=== PATIENT | female | born 1980 | race Hispanic/Latino ===

== ENCOUNTER 2017-04-09 10:55 | Emergency (ER) | payer SELFPAY ==
[2017-04-09] MEDS ORDERED: DEXAMETHASONE SOD PHOSPHATE 10MG/ML 1ML VIAL ONE (11:42)
[2017-04-09] MEDS ORDERED: CEFTRIAXONE SODIUM 1 GM ONE (11:43)
[2017-04-09] MEDS ORDERED: BENZONATATE 100 MG CAPSULE PO ONE (11:43)
[2017-04-09] MEDS ORDERED: LIDOCAINE HCL-MPF 1% 2ML VIAL ONE (11:43)
[2017-04-09] MEDS ORDERED: IPRATROPIUM/ALBUTEROL SULFATE 3 ML SOLUTION IH ONE (11:56)
== END 2017-04-09 13:31 | disposition home or self-care (01) ==
LOC: EDH 10:55
DX: J01.10 Acute frontal sinusitis, unspecified (principal); I10 Essential (primary) hypertension; Z72.0 Tobacco use
CPT/HCPCS: 94640; 96372 ×2; 99284; J0696; J1100; J3490

== ENCOUNTER 2017-05-08 18:42 | Emergency (ER) | payer SELFPAY ==
[2017-05-08] MEDS ORDERED: DEXAMETHASONE SOD PHOSPHATE 10MG/ML 1ML VIAL ONE (19:44)
[2017-05-08] MEDS ORDERED: KETOROLAC TROMETHAMINE 60 MG/2 ML VIAL ONE (19:44)
[2017-05-08] MEDS ORDERED: ACETAMINOPHEN-CODEINE ELIXIR 5 ML UDCUP ONE (19:45)
[2017-05-08] MEDS ORDERED: IPRATROPIUM/ALBUTEROL SULFATE 3 ML SOLUTION IH ONE (20:00)
== END 2017-05-08 20:36 | disposition home or self-care (01) ==
LOC: EDH 18:42
DX: J20.9 Acute bronchitis, unspecified (principal); I10 Essential (primary) hypertension; Z72.0 Tobacco use
CPT/HCPCS: 71046; 94640; 96372 ×2; 99284; J1100; J1885

== ENCOUNTER 2017-08-26 15:12 | Emergency (ER) | payer SELFPAY ==
[2017-08-26] MEDS ORDERED: ONDANSETRON HCL 4 MG/2 ML VIAL ONE (15:35)
[2017-08-26] MEDS ORDERED: ACETAMINOPHEN EXTRA STRENGTH 500 MG TABLET ONE (15:36)
[2017-08-26] MEDS ORDERED: SODIUM CHLORIDE 0.9% 1000ML 2,000 ML IV ONE (15:36)
[2017-08-26 16:13] LABS: BASOPHILS % (AUTO) 0.4 % (0.0-5.0); EOSINOPHILS % (AUTO) 0.2 % (0.0-8.0); HEMATOCRIT 38.7 % (36-48); LYMPHOCYTES % (AUTO) 8.1 % (21.0-51.0); MEAN CORPUSCULAR HEMOGLOBIN 29.8 pg (27.0-33.0); MEAN CORPUSCULAR HGB CONC 35.1 g/dL (32.0-36.0); MONOCYTES % (AUTO) 11.1 % (3.0-13.0); NEUTROPHILS % (AUTO) 80.2 % (40.0-77.0); PLATELET COUNT (AUTO) 271 K/uL (130-400); RED BLOOD CELL COUNT(AUTO) 4.55 MIL/uL (4.00-5.50); RED CELL DISTRIBUTION WIDTH 12.7 % (11.0-15.5); WHITE BLOOD COUNT (AUTO) 13.3 K/uL (4.8-10.8)
[2017-08-26 16:23] LABS: CREATININE 1.2 mg/dL (0.5-1.5); POTASSIUM 3.5 mmol/L (3.5-5.1)
[2017-08-26 16:27] LABS: RAPID GROUP A STREP NEGATIVE (NEGATIVE)
[2017-08-26 16:29] LABS: ALBUMIN 3.3 g/dL (3.5-5.0); BILIRUBIN,TOTAL 0.8 mg/dL (0.2-1.0); TOTAL PROTEIN, SERUM 7.6 g/dL (6.0-8.3)
[2017-08-26 16:57] LABS: APPEARANCE,URINE CLOUDY (CLEAR); BILIRUBIN,URINE NEGATIVE (NEGATIVE); COLOR,URINE YELLOW (YELLOW); GLUCOSE, URINE (UA) NEGATIVE (NEGATIVE); KETONES,URINE NEGATIVE (NEGATIVE); LEUKOCYTE ESTERASE ,URINE LARGE (NEGATIVE); NITRATE,URINE POSITIVE (NEGATIVE); OCCULT BLOOD,URINE SMALL (NEGATIVE); PROTEIN,URINE 100 (NEGATIVE)
[2017-08-26] MEDS ORDERED: CEFTRIAXONE SODIUM 1 GM ONE (17:10)
[2017-08-26 17:18] LABS: BACTERIA,URINE Few /HPF (None Seen); WBC,URINE 51-100 /HPF (0-1)
[2017-08-26 17:19] LABS: SQUAMOUS EPITHELIAL CELL,UR Rare /HPF (0-2)
== END 2017-08-26 18:37 | disposition home or self-care (01) ==
LOC: EDH 15:12
DX: N39.0 Urinary tract infection, site not specified (principal); R50.81 Fever presenting with conditions classified elsewhere; I10 Essential (primary) hypertension; Z98.890 Other specified postprocedural states
CPT/HCPCS: 36415; 71046; 80053; 81001; 83605 ×2; 85025; 87040 ×2; 87804 ×2; 87880; 96361; 96374; 96375; 99285; J0696; J2405; J7030

== ENCOUNTER 2023-09-18 16:53 | Emergency (ER) | payer OTHER ==
[~2023-09-18] VITALS: Ht 172.7 cm; Wt 86.2 kg
[2023-09-18] MEDS: CYCLOBENZAPRINE HCL 10 MG TABLET PO ONE (17:50)
[2023-09-18] MEDS: ACETAMINOPHEN 500 MG TABLET PO ONE (17:51)
[2023-09-18] MEDS: KETOROLAC 60 MG VIAL (30MG/ML) IM ONE (17:54)
[2023-09-18] MEDS ORDERED: IBUP-2077 PO (18:04)
[2023-09-18] MEDS ORDERED: CYCL-309 PO (18:04)
[2023-09-18 18:26] VITALS: BP 136/95; PULSE 95; RESP 18; O2SAT 97
== END 2023-09-18 18:24 | disposition home or self-care (01) ==
LOC: EDH 16:53
DX: S16.1XXA Strain of muscle, fascia and tendon at neck level, initial encounter (principal); S39.012A Strain of muscle, fascia and tendon of lower back, initial encounter; I10 Essential (primary) hypertension; Z90.49 Acquired absence of other specified parts of digestive tract; V89.2XXA Person injured in unspecified motor-vehicle accident, traffic, initial encounter; Y93.I9 Activity, other involving external motion; Y92.89 Other specified places as the place of occurrence of the external cause; Y99.8 Other external cause status
CPT/HCPCS: 99285; 72125; 96372; J1885